=== PATIENT | male | born 1975 | race Caucasian/White ===

== ENCOUNTER 2017-02-22 13:42 | Day surgery (SDC) | payer BC ==
[2017-02-22] MEDS ORDERED: cefOXitin 2 GM in Premix Bag 1 BAG IV ONE (13:53)
[2017-02-22] MEDS ORDERED: Sodium Chloride 0.9% 2.5 ML Syringe FLUSH PRN (13:53)
[2017-02-22] MEDS ORDERED: Sodium Chloride 0.9% 10 ML Syringe FLUSH PRN (13:53)
--- NOTE | 2017-02-22 13:59 | PCM.HP ---
H&P History of Present Illness - General Date of Service: 02/22/17 Admit Problem/Dx: Admission Diagnosis/Problem Admission Diagnosis/Problem Perianal abscess Source of Information: Patient History Limitations: Reports: No Limitations - History of Present Illness Initial Comments - Free Text/Narative: Patient is a 41-year-old male who presents with acute onset of perianal pain. He began 3 days ago and has gradually increased in severity. He denies ever having any signs or symptoms similar to this in the past. He denies any family history of colon cancer or inflammatory bowel disease. He had one episode of incontinence of gas. The patient had a bowel movement this morning that was very painful. He had a fever of 100F and chills this morning. He presented to his primary care provider who noticed a swelling on the anoderm that was tender to palpation. He started him on Flagyl and referred him to my office for surgical consultation. - Related Data Allergies/Adverse Reactions: Allergies Allergy/AdvReac Type Severity Reaction Status Date / Time No Known Allergies Allergy Verified 02/22/17 13:46 Home Medications: Home Meds L.acidoph,Paracasei, B.lactis [Probiotic] 1 cap PO DAILY 02/22/17 [History] Multivitamin [Daily Multiple Vitamin] 1 tab PO DAILY 02/22/17 [History] Past Medical History Other HEENT History: wears glasses Musculoskeletal History: Reports: Fracture Other Musculoskeletal History: hx of fx foot, stress fx right and left tibia Neurological History: Reports: Concussion - Past Surgical History HEENT Surgical History: Reports: Tonsillectomy Male Surgical History: Reports: Vasectomy Social & Family History - Tobacco Use Smoking Status *Q: Former Smoker - Recreational Drug Use Recreational Drug Use: No Drug Use in Last 12 Months: No H&P Review of Systems - Review of Systems: Review Of Systems: ROS reveals no pertinent complaints other than HPI. Exam - Exam Exam: See Below - Vital Signs Weight: 81.193 kg - Exam General: Alert, Oriented HEENT: EACs Clear, EOMI, Nares Patent, Posterior Pharynx Clear Neck: Supple Lungs: Clear to Auscultation, Normal Respiratory Effort Cardiovascular: Regular Rate, Regular Rhythm GI/Abdominal Exam: Soft, Non-Tender, No Distention Rectal (Males) Exam: Normal Rectal Tone, Perirectal Abscess (located posteriorly ), Tenderness *Q Meaningful Use (ADM) - VTE *Q VTE Criteria *Q: - Stroke *Q Stroke Criteria *Q: - AMI *Q AMI Criteria *Q: - Problem List (1) Perianal abscess SNOMED Code(s): 73568549 ICD Code: K61.0 - ANAL ABSCESS Status: Acute Current Visit: Yes Problem List Initiated/Reviewed/Updated: Yes Orders Last 24hrs: Active Orders 24 hr Category Date Time Status Patient Status [ADT] Routine ADT 02/22/17 13:53 Ordered Antiembolic Devices [RC] PER UNIT ROUTINE Care 02/22/17 13:54 Ordered Verify Patient Consent Obtain [RC] ASDIRECTED Care 02/22/17 13:53 Ordered Lactated Ringers @ 125 MLS/HR(1000ml) Med 02/22/17 14:00 Ordered Lactated Ringers [Ringers, Lactated] 1,000 ml IV ASDIRECTED Sodium Chloride 0.9% [Saline Flush] Med 02/22/17 13:53 Ordered 10 ml FLUSH ASDIRECTED PRN Sodium Chloride 0.9% [Saline Flush] Med 02/22/17 13:53 Ordered 2.5 ml FLUSH ASDIRECTED PRN cefOXitin [Mefoxin in Dextrose,Iso-Osm 2 GM/50 ML] 2 gm Med 02/22/17 13:53 Ordered Premix Bag 1 bag IV ONETIME Peripheral IV Insertion Adult [OM.PC] Routine Oth 02/22/17 13:53 Ordered Sequential Compression Device [OM.PC] Routine Oth 02/22/17 13:53 Ordered Resuscitation Status Routine Resus Stat 02/22/17 13:53 Ordered Assessment/Plan Comment:: Patient has swelling along the posterior aspect of his anoderm suggestive of a perianal abscess versus fistula. We discussed the pathophysiology of this disease. I will take him to the operating room for an exam under anesthesia, incision and drainage of perianal abscess and possible seton placement if an intersphincteric fistula is noted. I explained the risks including bleeding infection or damage to surrounding structures including alteration in continence. Patient verbalized understanding and wishes to proceed. He last ate this morning at 7 AM.
[2017-02-22] MEDS ORDERED: Lactated Ringers 1,000 ML IV SCH (14:00)
--- NOTE | 2017-02-22 14:13 | PCM.PREANE ---
Preanesthetic Assessment - Anesthesia/Transfusion/Family Hx Anesthesia History: Prior Anesthesia Without Reaction Transfusion History: No Prior Transfusion(s) - Review of Systems General: Fever Pulmonary: No Symptoms Cardiovascular: No Symptoms Gastrointestinal: No Symptoms Neurological: No Symptoms Other: Reports: None - Physical Assessment NPO Status Date: 02/22/17 NPO Status Time: 07:30 Height: 5 ft 9 in Weight: 81.193 kg ASA Class: 1E Mental Status: Alert & Oriented x3 Airway Class: Mallampati = 1 Dentition: Reports: Normal Dentition Thyro-Mental Finger Breadths: 3 Mouth Opening Finger Breadths: 3 ROM/Head Extension: Full Lungs: Clear to Auscultation, Normal Respiratory Effort Cardiovascular: Regular Rate, Regular Rhythm - Allergies Allergies/Adverse Reactions: Allergies Allergy/AdvReac Type Severity Reaction Status Date / Time No Known Allergies Allergy Verified 02/22/17 13:46 - Acknowledgements Anesthesia Type Planned: General Anesthesia Pt an Appropriate Candidate for the Planned Anesthesia: Yes Alternatives and Risks of Anesthesia Discussed w Pt/Guardian: Yes Pt/Guardian Understands and Agrees with Anesthesia Plan: Yes PreAnesthesia Questionnaire Other HEENT History: wears glasses Cardiovascular History: Reports: None Respiratory History: Reports: None Gastrointestinal History: Reports: None Genitourinary History: Reports: None Musculoskeletal History: Reports: Fracture Other Musculoskeletal History: hx of fx foot, stress fx right and left tibia Neurological History: Reports: Concussion Psychiatric History: Reports: None Endocrine/Metabolic History: Reports: None Hematologic History: Reports: None Immunologic History: Reports: None Oncologic (Cancer) History: Reports: None Dermatologic History: Reports: None - Infectious Disease History Infectious Disease History: Reports: None - Past Surgical History HEENT Surgical History: Reports: Tonsillectomy Male Surgical History: Reports: Vasectomy - SUBSTANCE USE Smoking Status *Q: Former Smoker Recreational Drug Use History: No - HOME MEDS Home Medications: Home Meds L.acidoph,Paracasei, B.lactis [Probiotic] 1 cap PO DAILY 02/22/17 [History] Multivitamin [Daily Multiple Vitamin] 1 tab PO DAILY 02/22/17 [History] - CURRENT (IN HOUSE) MEDS Current Meds: Current Medications Cefoxitin Sodium 2 gm/ Premix 50 mls @ 100 mls/hr IV ONETIME ONE Stop: 02/22/17 14:22 Lactated Ringer's (Ringers, Lactated) 1,000 mls @ 125 mls/hr IV ASDIRECTED DMITRY Sodium Chloride (Saline Flush) 10 ml FLUSH ASDIRECTED PRN PRN Reason: Keep Vein Open Sodium Chloride (Saline Flush) 2.5 ml FLUSH ASDIRECTED PRN PRN Reason: Keep Vein Open
[2017-02-22] MEDS ORDERED: Bupivacaine 25%/EPINEPHrine/PF 0 ML ONE (14:18)
[2017-02-22] MEDS ORDERED: Bupivacaine 0.25% 10 ML SDV ONE (14:18)
[2017-02-22] MEDS ORDERED: Bupivacaine 0.5% 30 ML SDV ONE (14:20)
[2017-02-22] MEDS ORDERED: Ondansetron 4 MG/2 ML SDV ONE (16:01)
[2017-02-22] MEDS ORDERED: Succinylcholine/Normal Saline 200 MG/10 ML Syringe ONE (16:01)
[2017-02-22] MEDS ORDERED: Rocuronium 10 MG/ML 10 ML Syringe ONE (16:01)
[2017-02-22] MEDS ORDERED: Lidocaine 2% 5 ML SDV ONE (16:01)
[2017-02-22] MEDS ORDERED: Propofol 200 MG/20 ML SDV ONE (16:01)
[2017-02-22] MEDS ORDERED: Midazolam 1 MG/ML 2 ML SDV ONE (16:02)
[2017-02-22] MEDS ORDERED: fentaNYL 100 MCG/2 ML SDV ONE ×2 (16:02→16:58)
[2017-02-22] MEDS ORDERED: Sodium Chloride 0.9% 20 ML ONE (16:48)
[2017-02-22] MEDS ORDERED: ceFAZolin 1 GM Vial ONE (16:48)
[2017-02-22] MEDS ORDERED: cefOXitin 1 GM Vial ONE (16:49)
[2017-02-22] MEDS ORDERED: Dexamethasone 4 MG/ML 5 ML MDV ONE (17:00)
[2017-02-22] MEDS ORDERED: fentaNYL 100 MCG/2 ML SDV IVPUSH PRN (17:21)
--- NOTE | 2017-02-22 17:33 | PCM.OPNOTE ---
- General Post-Op/Procedure Note Date of Surgery/Procedure: 02/22/17 Operative Procedure(s): Incision and drainage of perianal abscess Findings: Perianal abscess Pre Op Diagnosis: Perianal abscess Post-Op Diagnosis: Perianal abscess Anesthesia Technique: General ET Tube Primary Surgeon: Alissa Decker Condition: Good
--- NOTE | 2017-02-22 17:46 | PCM.POSTAN ---
POST ANESTHESIA ASSESSMENT - MENTAL STATUS Mental Status: Alert, Oriented - VITAL SIGNS Pulse Rate: 94 SaO2: 98 Resp Rate: 20 - RESPIRATORY Respiratory Status: Respiratory Rate WNL, Airway Patent, O2 Saturation Stable - CARDIOVASCULAR CV Status: Pulse Rate WNL, Blood Pressure Stable - GASTROINTESTINAL GI Status: No Symptoms - PAIN Pain Score: 0 - POST OP HYDRATION Hydration Status: Adequate & Stable
[2017-02-22 19:08] VITALS: BP 135/87
--- NOTE | 2017-02-22 19:44 | PCM48HPAN ---
Post Anesthesia Note - EVALUATION WITHIN 48HRS OF ANESTHETIC Vital Signs in Normal Range: Yes Patient Participated in Evaluation: Yes Respiratory Function Stable: Yes Airway Patent: Yes Cardiovascular Function Stable: Yes Hydration Status Stable: Yes Pain Control Satisfactory: Yes Nausea and Vomiting Control Satisfactory: Yes Mental Status Recovered: Yes
--- NOTE | 2017-02-23 00:22 | OR ---
SURGEON: NOEL DUTTA MD DATE OF PROCEDURE: 02/22/2017 PREOPERATIVE DIAGNOSIS: Perianal abscess. POSTOPERATIVE DIAGNOSIS: Perianal abscess. PROCEDURE PERFORMED: Incision and drainage of perianal abscess. ANESTHESIA: General endotracheal anesthesia. FINDINGS: Perianal abscess just left of the posterior midline. No evidence of fistula. COMPLICATIONS: None. INDICATIONS: The patient is a 41-year-old male, who presents with perianal pain for the last 3 days. This morning, he experienced a low-grade temperature and chills. He presented to his primary care provider's office and was diagnosed with a perianal abscess. I saw him in clinic this afternoon and confirmed this diagnosis. The patient and I discussed the pathophysiology of this disease. I explained that this could be a perianal fistula versus a perianal abscess. In order to treat this, we will need to take him to the operating room to perform exam under anesthesia with possible incision and drainage of a perianal abscess and possible seton placement. The patient and I discussed the procedure as well as expected perioperative course. We discussed the risks, including bleeding, infection, or damage to surrounding structures including alteration incontinence. The patient verbalized understanding and wished to proceed. PROCEDURE IN DETAIL: The patient was brought to the operating suite and left on the OR cart. A time- out was completed verifying the patient's name, age, date of , allergies, and procedure to be performed. General endotracheal anesthesia was induced. After the patient was intubated, he was placed on the operating room table in prone position. Care was taken to pad all bony services. The buttocks were then taped laterally and the anoderm and buttocks prepped and draped in usual standard fashion. A digital rectal exam was performed, which showed a hard woody area just left of the posterior midline. There was a fluctuant area along the anoderm just left of midline. An 11 blade was used to make a cruciate incision over the top of the area of maximal fluctuance. A large amount of purulence was expressed. The corners of the cruciate incision were then excised allowing me to further explore the wound. The abscess tracked medially towards the posterior midline. Fistula probe was inserted into the wound and I examined the anal canal with a bivalve speculum. No fistulous connection was noted with the probe. I filled up the abscess cavity with hydrogen peroxide and examined the posterior half of the anal canal. No leakage of hydrogen peroxide was noted within the anal canal. The hydrogen peroxide was suctioned out and I attempted to identify a fistula again using a fistula probe. None was noted and I tried one last time to fill the abscess cavity with hydrogen peroxide. Despite these attempts at identifying a fistulous tract, none was noted. The wound was then irrigated with normal saline and packed with a gauze fluff. I then performed a perineal block bilaterally using 0.5% Marcaine plain. 0.5% Marcaine was then injected in the anoderm circumferentially. Fluffs and mesh panties were applied. The patient was placed back on the OR cart and extubated successfully. He was taken to the PACU in stable condition. RILEY CLIFTON /[id number] MTDD
== END 2017-02-22 19:32 | disposition home or self-care (01) ==
LOC: MW.SDS 13:42 → MW.ICU 17:32 → MW.SDS 19:32
PROVIDERS: ATTEND Surgery
DX: K61.0 Anal abscess (principal); Z87.891 Personal history of nicotine dependence; Z98.52 Vasectomy status; Z90.89 Acquired absence of other organs; Z79.899 Other long term (current) drug therapy
CPT/HCPCS: 46050; J0694; J1100; J2250; J2405; J3010; J7120; 00902; J0690; J2704